=== PATIENT | female | born 1980 | race Caucasian/White ===

== ENCOUNTER → 2020-02-17 | Outpatient (CLI) | payer OTHER ==
[~2020-02-17] MED LIST: ATIVAN1 MG PO; L-LYSINE1000 MG; LEXAPRO 10 MG T10 MG; MULTIVITAMINS1 EAC7; VITAMIN B 12
== END ==
LOC: LAB 02-14 12:12
PROVIDERS: ATTEND Anesthesiology
DX: Z01.812 Encounter for preprocedural laboratory examination (principal); Z20.828 Contact with and (suspected) exposure to other viral communicable diseases